=== PATIENT | male | born 1985 | race Two or more races ===

== ENCOUNTER 2016-05-26 18:19 | Emergency (ER) | payer SELFPAY ==
[~2016-05-26] VITALS: Ht 160 cm; Wt 59.0 kg
[2016-05-26 20:18] VITALS: BP 144/83
== END 2016-05-26 21:47 | disposition home or self-care (01) ==
LOC: ER 18:28
DX: S40.012A Contusion of left shoulder, initial encounter (principal); F17.210 Nicotine dependence, cigarettes, uncomplicated; F12.10 Cannabis abuse, uncomplicated; Z88.0 Allergy status to penicillin; W19.XXXA Unspecified fall, initial encounter; Y93.23 Activity, snow (alpine) (downhill) skiing, snowboarding, sledding, tobogganing and snow tubing; Y99.8 Other external cause status; Y92.89 Other specified places as the place of occurrence of the external cause
CPT/HCPCS: 71010; 73030

== ENCOUNTER 2024-12-06 01:20 | Inpatient (IN) | payer MEDICAID, OTHER ==
[~2024-12-06] VITALS: Ht 162.6 cm; Wt 65.4 kg
[2024-12-06] VITALS (7 sets, daily range): BP systolic 99–128; BP diastolic 65–91; PULSE 66–115; RESP 13–19; TEMP 98–98.4; O2SAT 90–96
--- NOTE | 2024-12-06 01:33 | ED.PDOC ---
Altered Mental Status HPI Comments 39 year old male presents to the ED via EMS with a chief complaint of ALOC. Per EMS, patient was at home, family heard a loud "thump" around 23:00, went to check on the patient around midnight, they noticed patient was on the ground, unresponsive, began CPR. S.O gave patient 8 mg Narcan IN. Upon EMS arrival, eli ent's O2 sat was initially low 60s, placed on O2, BS read "high", IV fluids were given in route. Upon ED arrival, patient is awake, altered, not answering questions appropriately, denies drug or alcohol use, BS was 533, patient able to breath on his own. Patient is a poor historian. Time Seen by MD: 01:25 Primary Care Provider: NONE Reviewed Notes: Medications, Allergies Allergies: Coded Allergies: Penicillins (Verified Allergy, Unknown, 05/26/16) Information Source: Emergency Med Personnel Mode of Arrival: EMS Severity: Moderate Timing: Hours Duration: Since onset Prehospital treatment: IVF, Other (Narcan 8 mg IN) Quality: Decreased Alertness, Change in Behavior History of: None Past Medical History PAST MEDICAL HISTORY: Denies Surgical History: Denies all surgeries Social History Smoker: Cigarettes Alcohol: Occasionally Drugs: Marijuana Lives In: Home Unable to Obtain due to: Altered Mental Status Physical Exam General Appearance: Normal HEENT: Normal ENT Inspection, Pharynx Normal, TMs Normal Neck: Full Range of Motion, Non-Tender, Normal, Normal Inspection Respiratory: Chest Non-Tender, Lungs Clear, No Accessory Muscle Use, No Respiratory Distress, Normal Breath Sounds Cardiovascular: No Edema, No JVD, No Murmur, No Gallop, Normal Peripheral Pulses, Regular Rate/Rhythm Breast Exam: Deferred Gastrointestinal: No Organomegaly, Non Tender, No Pulsatile Mass, Normal Bowel Sounds, Soft Genitalia: Deferred Pelvic: Deferred Rectal: Deferred Extremities: No calf tenderness, Normal capillary refill, Normal inspection, Normal range of motion, Non-tender, No pedal edema Musculoskeletal : Apperance: Normal Neurologic: Alert, Disoriented Cerebellar Function: Normal Reflexes: Normal Skin: Dry, Normal Color, Warm Lymphatic: No Adenopathy Was a procedure done? Was a procedure done?: No Differential Diagnosis (ALOC) Differential Diagnosis: Dehydration, DKA, Drug Overdose, ETOH Intoxication X-Ray, Labs, Meds, VS Vital Signs Date Time Temp Pulse Resp B/P (MAP) Pulse Ox O2 Delivery O2 Flow Rate FiO2 12/06/24 01:45 98.1 115 14 135/83 (100) 96 98.1 12/06/24 01:45 115 14 96 Nasal Cannula* 6 44 12/06/24 01:44 118 12/06/24 01:30 120 12/06/24 01:20 98.7 123 30 136/86 92 98.7 Lab Test 12/06/24 03:22 12/06/24 01:59 12/06/24 01:42 12/06/24 01:40 Range/Units POC Glucose 144 H 70-106 mg/dl Urine Color Light-yellow Yellow Urine Clarity Clear Clear Urine pH 6.5 5.0-9.0 Urine Specific [place] 1.009 1.001-1.035 Urine Protein 1+ H Negative Urine Ketones Negative Negative Urine Blood 1+ H Negative /uL Urine Nitrite Negative Negative Urine Bilirubin Negative Negative Urine Urobilinogen Normal Negative mg/dL Urine Leukocyte Esterase Negative Negative /uL Urine RBC 5 0 - 3 /hpf Urine Microscopic WBC 3 0-3 /HPF Urine Squamous Epithelial Cells None seen <5 /hpf Urine Bacteria None seen None Seen /hpf Urine Sperm Present None Seen /hpf Urine Glucose 4+ H Normal mg/dL Urine Opiates Screen Neg NEGATIVE Urine Fentanyl Screen Pos NEGATIVE Urine Barbiturates Screen Neg NEGATIVE Urine Phencyclidine Screen Neg NEGATIVE Urine Amphetamines Screen Pos NEGATIVE Urine Benzodiazepines Screen Neg NEGATIVE Urine Cocaine Screen Neg NEGATIVE Urine Cannabinoids Screen Neg NEGATIVE Blood Gas Specimen Type Venous Blood Gas Sample Site Vbg - n/a Blood Gas Patient Temperature 37.0 Arterial Blood Date Drawn [id number] Pete Test N/a Venous Blood pH 7.108 *L 7.320-7.430 Venous Blood pCO2 at Patient Temp 59.4 *H 38.0-54.0 mmHg Venous Blood pO2 at Patient Temp < 36.5 23.0-48.0 mmHg Venous Blood HCO3 18.4 L 22.0-29.0 mmol/L Venous Blood Base Excess -11.8 L -2.0-3.0 mmol/L Blood Gas Modality Room air FiO2 % 21.0 Blood Gas Critical Value Read Back Yes Blood Gas Notified Whom nga rCuz md Blood Gas Notified Time [id number] Blood Gas Notified By Magaña, b, handbag frames inspector White Blood Count 11.3 H 4.4-10.8 10^3/uL Red Blood Count 5.18 4.5-5.90 10^6/uL Hemoglobin 15.8 13.5-17.5 g/dL Hematocrit 48.4 41.0-53.0 % Mean Corpuscular Volume 93.4 80.0-100.0 fL Mean Corpuscular Hemoglobin 30.5 28.0-32.0 pg Mean Corpuscular Hemoglobin Concent 32.6 32.0-36.0 g/dL Red Cell Distribution Width 14.1 11.8-14.3 % Platelet Count 235 140-450 10^3/uL Mean Platelet Volume 8.3 6.9-10.8 fL Neutrophils (%) (Auto) 83.5 H 37.0-80.0 % Lymphocytes (%) (Auto) 14.9 10.0-50.0 % Monocytes (%) (Auto) 1.0 0.0-12.0 % Eosinophils (%) (Auto) 0.4 0.0-7.0 % Basophils (%) (Auto) 0.2 0.0-2.0 % Neutrophils # (Auto) 9.5 H 1.6-8.6 10 ^3/uL Lymphocytes # (Auto) 1.7 0.4-5.4 10 ^3/uL Monocytes # (Auto) 0.1 0-1.3 10 ^3/uL Eosinophils # (Auto) 0 0-0.8 10 ^3/uL Basophils # (Auto) 0 0-0.2 10 ^3/uL Nucleated Red Blood Cells 0.2 % Sodium Level 137 136-145 mmol/L Potassium Level 5.5 H 3.5-5.1 mmol/L Chloride Level 101 98-107 mmol/L Carbon Dioxide Level 20 20-31 mmol/L Anion Gap 16 H 5-15 Blood Urea Nitrogen 14 9-23 mg/dL Creatinine 2.20 H 0.700-1.30 mg/dL Glomerular Filtration Rate Calc 38 >90 mL/min BUN/Creatinine Ratio 6.4 L 10.0-20.0 Serum Glucose 553 *H 74-106 mg/dL Serum Osmolality 319 H 278-298 mOsm/kg Calcium Level 9.5 8.7-10.4 mg/dL Phosphorus Level 9.6 H 2.4-5.1 mg/dL Magnesium Level 2.9 H 1.6-2.6 mg/dL Total Bilirubin 0.7 0.2-1.0 mg/dL Aspartate Amino Transferase (AST) 631 H 13-40 U/L Alanine Aminotransferase (ALT) 431 H 7-40 U/L Alkaline Phosphatase 126 H 46-116 U/L Total Protein 7.0 5.7-8.2 g/dL Albumin 5.0 H 3.2-4.8 g/dL Beta-Hydroxybutyric Acid 0.204 < 0.4 mmol/L Salicylates Level < 3.0 -30 mg/dL Acetaminophen Level < 2.0 L 10.0-20.0 UG/ML Plasma/Serum Blood Alcohol 5.3 <10 mg/dL Current Medications Medications (Trade) Dose Ordered Sig/Trena Route Start Time Stop Time Status Last Admin Sodium Chloride 2,000 ml @ 1,000 mls/hr Q2H ONCE IV 12/06/24 01:30 12/06/24 03:29 DC 12/06/24 02:18 Insulin Human Regular (InsuLIN R) 2 units ONCE ONCE SC 12/06/24 01:30 12/06/24 01:32 DC 12/06/24 02:21 [place] [id number] Ph: [phone] DIAGNOSTIC IMAGING Diagnostic Imaging Report : [id number] Signed PATIENT: MICHAEL ROSALES ACCT: [id number] UNIT: [id number] : 1985 LOC: ER ROOM / BED: / AGE / SEX: 39 / M ADM STATUS: REG ER SERVICE 0128 ORDERING PHYSICIAN: RONNA CRUZ MD PROCEDURE(s): HWOCT - HEAD WITHOUT CONTRAST REASON: ALOC ORDER NUMBER(s): [id number], ACCESSION NUMBER(s): [id number] EXAM: CT HEAD WITHOUT CONTRAST INDICATION: ALOC TECHNIQUE: CT of the head without intravenous contrast. Radiation Dose : 1. Head: CT Dose: CTDI volume is 54.89 mGy. Dose-length product is 1081.71 mGy*cm The dose indicators for CT are the volume Computed Tomography (CT) Dose Index (CTDIvol) and the Dose Length Product (DLP), and are measured in units of mGy and mGy-cm, respectively. These indicators are not patient dose, but values generated from the CT scanner acquisition factors. The report includes radiation exposure data for exposures received during this examination. COMPARISON: None FINDINGS: There is no evidence of acute intracranial hemorrhage, extra-axial collection, mass effect, midline shift, herniation or hydrocephalus. The ventricles, sulci and cisterns are age appropriate. The levi-white differentiation is intact. The visualized paranasal sinuses and mastoid air cells are clear. The surrounding soft tissues and osseous structures are unremarkable. IMPRESSION: 1. No acute intracranial abnormality. Radiation optimization: All CT scans at this facility use at least one of these dose optimization techniques: automated exposure control mA and/or kV adjustment per patient size (includes targeted exams where dose is matched to clinical indication) or iterative reconstruction. ATED BY: MAGNO CANALES MD DICTATED DATE/TIME: 12/06/24218 SIGNED BY: MAGNO CANALES MD SIGNED DATE/TIME: 12/06/24218 CC: [place] [id number] Ph: [phone] DIAGNOSTIC IMAGING Diagnostic Imaging Report : [id number] Signed PATIENT: MICHAEL ROSALES ACCT: [id number] UNIT: [id number] : 1985 LOC: ER ROOM / BED: / AGE / SEX: 39 / M ADM STATUS: REG ER SERVICE 7 ORDERING PHYSICIAN: RONNA CRUZ MD PROCEDURE(s): CXRP - CHEST PORTABLE REASON: SOB ORDER NUMBER(s): [id number], ACCESSION NUMBER(s): [id number] CHEST RADIOGRAPH Indication: SOB Technique: Single frontal view of the chest was obtained COMPARISON: None FINDINGS: Lines and Tubes: None Lungs: Clear Pleura: No effusion. No pneumothorax. Cardiomediastinal contours: Unremarkable Bones: Unremarkable IMPRESSION: 1. No acute disease. ATED BY: MAGNO CANALES MD DICTATED DATE/TIME: 12/06/24215 SIGNED BY: MAGNO CANALES MD SIGNED DATE/TIME: 12/06/246 CC: Time of 1ST Reevaluation: 01:55 Reevaluation 1ST: Unchanged Patient Education/Counseling: Diagnosis, Treatment, Prognosis Family Education/Counseling: No Family Present Additional Information The following tests were ordered, and results were reviewed by me:CBC, CMP, DRUG SCREEN, ACETAMINOPHEN, SALICYLATE, UA, XY CHEST, BLOOD ALCOHOL, MAGNESIUM, CT HEAD WO CONTRAST, VBG, EKG Additional Information was gathered from interviewing the following independent historians: EMS I reviewed and agreed with the following test results read by other providers: XY CHEST I discussed treatment and results with medical personnel and: patient Comprehensive systems review obtained and negative except for what is stated in the HPI. SEPSIS Sepsis Screen Physician Orders Chest Portable (12/06/24 01:28) Head Without Contrast (12/06/24 01:28) Venous Blood Gas (12/06/24 01:28) Insulin Drip Protocol (12/06/24 ) Sodium Chloride 0.9% (12/06/24 06:00) Insulin Drip 100 Unit/100ml (Myxredlin 1 (12/06/24 02:00) Dextrose 50% Syringe (12/06/24 02:00) Glucose Blood (Accu-Chek Comfort Curve T (12/06/24 03:00) Neurological Assessment (12/06/24 01:58) Vs/Hemodynamics .PER UNIT PROTOCOL (12/06/24 01:58) Vital Signs Date Time Temp Pulse Resp B/P (MAP) Pulse Ox O2 Delivery O2 Flow Rate FiO2 12/06/24 01:45 98.1 115 14 135/83 (100) 96 98.1 12/06/24 01:45 115 14 96 Nasal Cannula* 6 44 12/06/24 01:44 118 12/06/24 01:30 120 12/06/24 01:20 98.7 123 30 136/86 92 98.7 Laboratory Tests Test 12/06/24 01:40 White Blood Count 11.3 10^3/uL (4.4-10.8) H Medications Medications Dose Ordered Sig/Trena Route Start Time Stop Time Status Last Admin Dose Admin Insulin Human Regular 2 units ONCE ONCE SC 12/06/24 01:30 12/06/24 01:32 DC 12/06/24 02:21 Sodium Chloride 2,000 ml @ 1,000 mls/hr Q2H ONCE IV 12/06/24 01:30 12/06/24 03:29 DC 12/06/24 02:18 Departure 1 Departure Time of Disposition: 03:42 Impression: Primary Impression: Metabolic encephalopathy Additional Impressions: New onset type 1 diabetes mellitus, uncontrolled Acute renal injury Diabetic ketoacidosis Disposition: ADMITTED INPATIENT Admit to: ICU Condition: Critical Discharged With: Self Comments Altered Mental Status with DKA and Opiate Overdose Chief Complaint: Altered mental status History of Present Illness: Patient is a 39-year-old male with no reported medical history who was brought in by ambulance after being found altered at home. Family members reported hearing a thump around 11 PM and found the patient unresponsive approximately one hour later. EMS administered Narcan at the scene, which resulted in the patient regaining consciousness. Upon arrival to the ED, the patient denied any drug use and claimed to have no medical problems or regular medications. He did admit to not having seen a doctor in many years and being non-compliant with healthcare. Initial workup revealed severe hyperglycemia with blood glucose of 553 mg/dL, consistent with diabetic ketoacidosis (DKA) with an elevated anion gap of 16 and acidosis (pH 7.1, PCO2 59). The patient also presented with acute kidney injury (creatinine 2.2 mg/dL), hyperkalemia (5.5 mEq/L), hypermagnesemia (2.9 mg/dL), hyperphosphatemia (9.6 mg/dL), and elevated liver enzymes (AST 631 U/L, ALT 431 U/L). Toxicology screen was positive for opiates, suggesting that the altered mental status was likely due to opiate overdose in addition to metabolic derangements from DKA. Review of Systems: Unable to obtain comprehensive review of systems due to patient's altered mental status. Neurological: Initially unresponsive, improved after Narcan administration. Endocrine: Findings consistent with undiagnosed diabetes mellitus with DKA. Renal: Evidence of acute kidney injury. Hepatic: Elevated liver enzymes suggesting hepatic dysfunction. Medications: Patient denies taking any medications regularly. Allergies: No known drug allergies reported. Past Medical History: Patient denies any past medical history. Likely undiagnosed diabetes mellitus based on current presentation. Past Surgical History: None reported. Social History: Patient admits to not seeing a doctor in many years. Evidence of opiate use based on positive toxicology screen. Other social history details not available at this time. Family History: Not obtained due to patient's condition. Vital Signs: No specific vital signs documented in the ribbon cleaner. Physical Exam: Limited physical exam details available in the ribbon cleaner. Neurological: Initially altered, improved after Narcan administration. Lab Results: Blood glucose: 553 mg/dL (severely elevated), later dropped to 150 mg/dL after insulin administration Arterial blood gas: pH 7.1 (acidotic), PCO2 59 mmHg (elevated) Anion gap: 16 (elevated) BUN: 14 mg/dL (normal) Creatinine: 2.2 mg/dL (elevated, consistent with acute kidney injury) Potassium: 5.5 mEq/L (elevated) Magnesium: 2.9 mg/dL (elevated) Phosphorus: 9.6 mg/dL (elevated) AST: 631 U/L (significantly elevated) ALT: 431 U/L (significantly elevated) Alkaline phosphatase: 126 U/L (elevated) Total bilirubin: 0.7 mg/dL (normal) Urinalysis: Positive for protein, blood, and glucose Toxicology screen: Positive for opiates Imaging and Other Relevant Results: CT head: No acute pathology Chest X-ray: No acute pathology Medical Decision Making: Summary Statement: 39-year-old male with no known medical history presenting with altered mental status found to have severe DKA, acute kidney injury, elevated liver enzymes, and positive opiate screen, suggesting both new-onset diabetes and opiate overdose as contributing factors to his presentation. Problem List: 1. Diabetic ketoacidosis 2. Opiate overdose 3. Acute kidney injury 4. Elevated liver enzymes 5. Electrolyte abnormalities (hyperkalemia, hypermagnesemia, hyperphosphatemia) Differential Diagnosis: For altered mental status: DKA, opiate overdose, other substance intoxication, sepsis, cerebrovascular event, hypoxic brain injury. For elevated liver enzymes: drug-induced liver injury, viral hepatitis, ischemic hepatitis, alcoholic liver disease. ED Course: Patient received IV fluids and insulin, resulting in blood glucose reduction from 553 mg/dL to 150 mg/dL. Narcan was administered by EMS with improvement in mental status. Diagnostic workup included laboratory studies, CT head, and chest X-ray. Decision was made to admit for management of DKA with insulin infusion and D5 drip, as well as monitoring for opiate overdose. Assessment and Plan: 1. Diabetic Ketoacidosis (DKA): - Likely new-onset diabetes mellitus with severe hyperglycemia (glucose 553 mg/dL), elevated anion gap (16), and acidosis (pH 7.1) - Continue IV fluid resuscitation - Initiate low-dose insulin infusion with D5 drip to prevent precipitous glucose drop - Monitor electrolytes closely, particularly potassium - Serial blood gases to track resolution of acidosis - Endocrinology consultation for diabetes management and education 2. Opiate Overdose: - Positive toxicology screen for opiates, responsive to Narcan - Monitor for recurrent respiratory depression or altered mental status - Substance use consultation for evaluation and treatment recommendations - Social work consultation for outpatient resources 3. Acute Kidney Injury: - Creatinine elevated at 2.2 mg/dL with normal BUN - Likely multifactorial from DKA and possible hypoperfusion - Continue IV hydration - Monitor urine output and serial renal function tests - Avoid nephrotoxic medications 4. Elevated Liver Enzymes: - AST 631 U/L, ALT 431 U/L - Consider drug-induced liver injury vs. ischemic hepatitis - Monitor liver function tests - Hepatitis panel to rule out viral etiology 5. Electrolyte Abnormalities: - Hyperkalemia (5.5 mEq/L), hypermagnesemia (2.9 mg/dL), hyperphosphatemia (9.6 mg/dL) - Monitor and correct as part of DKA management - Serial electrolyte measurements Disposition: Admit to medical floor for management of DKA with insulin infusion and monitoring for complications of opiate overdose. Additional Notes: Patient admitted for management of DKA and monitoring following opiate overdose. Billing Information: ICD-10: E11.10 - Type 2 diabetes mellitus with ketoacidosis without coma ICD-10: T40.2X1A - Poisoning by other opioids, accidental (unintentional), initial encounter ICD-10: N17.9 - Acute kidney injury, unspecified ICD-10: K72.0 - Acute and subacute hepatic failure Critical Care Note Critical Care Time?: Yes (35 min-critical care time only) Critical care comment: Total critical care time: Approximately 36 minutes Due to a high probability of clinically significant, life threatening deterioration, the patient required my highest level of preparedness to intervene emergently and I personally spent this critical care time directly and personally managing the patient. This critical care time included obtaining a history; examining the patient; pulse oximetry; ordering and review of studies; arranging urgent treatment with development of a management plan; evaluation of patient's response to treatment; frequent reassessment; and, discussions with other providers. This critical care time was performed to assess and manage the high probability of imminent, life-threatening deterioration that could result in multi-organ failure. It was exclusive of separately billable procedures and treating other patients. Stability Stability form required: No Heart Score Heart Score: Heart Score Response (Comments) Value History N/A 0 EKG N/A 0 Age N/A 0 Risk Factors N/A 0 Troponin N/A 0 Total 0 I personally scribed for RONNA CRUZ MD ([email or web address]) on 12/06/24 at 01:33. Electronically submitted by Amber Cao ([email or web address]). I personally scribed for RONNA CRUZ MD ([email or web address]) on 12/06/24 at 01:35. Electronically submitted by Amber Cao ([email or web address]). I personally scribed for RONNA CRUZ MD ([email or web address]) on 12/06/24 at 02:52. Electronically submitted by Amber Cao ([email or web address]). RONNA CRUZ MD Dec 06, 2024 01:33
[2024-12-06] MEDS ORDERED: DEXTROSE (50%) 50ML SYRG IV PRN ×3 (02:00→13:45)
[2024-12-06] MEDS: SODIUM CHLORIDE 0.9% 2,000 ML IV ONE (02:18)
--- NOTE | 2024-12-06 02:19 | DVH ---
CHEST RADIOGRAPH Indication: SOB Technique: Single frontal view of the chest was obtained COMPARISON: None FINDINGS: Lines and Tubes: None Lungs: Clear Pleura: No effusion. No pneumothorax. Cardiomediastinal contours: Unremarkable Bones: Unremarkable IMPRESSION: 1. No acute disease.
[2024-12-06 02:21] LABS: Hematocrit 48.4 % (41.0-53.0); Hemoglobin 15.8 g/dL (13.5-17.5); Mean Corpuscular Hemoglobin 30.5 pg (28.0-32.0); Mean Corpuscular Volume 93.4 fL (80.0-100.0); Nucleated Red Blood Cells % 0.2 %
[2024-12-06] MEDS: InsuLIN REG 1unit/0.01ml Soln (100units/ml) SC ONE (02:21)
--- NOTE | 2024-12-06 02:21 | DVH ---
EXAM: CT HEAD WITHOUT CONTRAST INDICATION: ALOC TECHNIQUE: CT of the head without intravenous contrast. Radiation Dose : 1. Head: CT Dose: CTDI volume is 54.89 mGy. Dose-length product is 1081.71 mGy*cm The dose indicators for CT are the volume Computed Tomography (CT) Dose Index (CTDIvol) and the Dose Length Product (DLP), and are measured in units of mGy and mGy-cm, respectively. These indicators are not patient dose, but values generated from the CT scanner acquisition factors. The report includes radiation exposure data for exposures received during this examination. COMPARISON: None FINDINGS: There is no evidence of acute intracranial hemorrhage, extra-axial collection, mass effect, midline s hift, herniation or hydrocephalus. The ventricles, sulci and cisterns are age appropriate. The levi-white differentiation is intact. The visualized paranasal sinuses and mastoid air cells are clear. The surrounding soft tissues and osseous structures are unremarkable. IMPRESSION: 1. No acute intracranial abnormality. Radiation optimization: All CT scans at this facility use at least one of these dose optimization aliyah hniques: automated exposure control mA and/or kV adjustment per patient size (includes targeted exam s where dose is matched to clinical indication) or iterative reconstruction.
[2024-12-06 02:32] LABS: Urine Protein, UAD 1+ (Negative)
[2024-12-06 02:35] LABS: Anion Gap 16 (5-15); BUN/Creatinine Ratio 6.4 (10.0-20.0); Bilirubin, Total 0.7 mg/dL (0.2-1.0); Blood Urea Nitrogen 14 mg/dL (9-23); Calcium 9.5 mg/dL (8.7-10.4); Chloride 101 mmol/L (98-107); Sodium 137 mmol/L (136-145); Total Protein 7.0 g/dL (5.7-8.2)
--- NOTE | 2024-12-06 02:35 | ECG ---
[facility] Test Date: 2024-12-06 Test Time: 01:30:52 Pat Name: MICHAEL ROSALES Department: ED Room: [address] [place] [address] Gender: M Security Operations Manager: ZAIN : 1985 Requested By: RONNA CRUZ Order Number: [id number] Reading MD: Jaylen Calvin Measurements Intervals Jarrell Rate: 120 P: 51 ND: 146 QRS: 61 QRSD: 100 T: 14 QT: 318 QTc: 450 Interpretive Statements Sinus tachycardia Minimal ST depression, inferior leads Electronically Signed On 12-06-2024 11:21:12 PDT by Jaylen Calvin Please click the below link to view image of tracing.
[2024-12-06 02:37] LABS: Acetaminophen < 2.0 UG/ML (10.0-20.0); Salicylate < 3.0 mg/dL (-30)
[2024-12-06] MEDS: ACCU-CHEK COMFORT CURVE STRIP VI SCH ×2 (03:00→08:00)
[2024-12-06 03:14] LABS: Alanine Aminotransferase 431 U/L (7-40); Albumin 5.0 g/dL (3.2-4.8); Alkaline Phosphatase 126 U/L (46-116); Carbon Dioxide 20 mmol/L (20-31); Magnesium 2.9 mg/dL (1.6-2.6); Potassium 5.5 mmol/L (3.5-5.1)
[2024-12-06 03:15] LABS: Amphetamine Screen, Urine Pos (NEGATIVE); Barbiturate Scree,Urine Neg (NEGATIVE); Benzodiazephine Screen, Urine Neg (NEGATIVE); Cannabinoid Screen, Urine Neg (NEGATIVE); Cocaine Screen, Urine Neg (NEGATIVE); Opiate Scree,Urine Neg (NEGATIVE); Phencyclidine Screen, Urine Neg (NEGATIVE)
[2024-12-06 03:15] LABS: Glucose 553 mg/dL (74-106)
[2024-12-06] MEDS: SODIUM CHLORIDE 0.9% 1,000 ML IV ONE ×3 (03:47→12:00)
[2024-12-06] MEDS: INSULIN DRIP 100 UNIT/100ML 100 ML IV SCH (03:48)
[2024-12-06] MEDS ORDERED: ONDANSETRON HCL 4 MG/2 ML VIAL IV PRN (04:30)
[2024-12-06] MEDS ORDERED: MORPHINE SULFATE INJ 2 MG/ml SYRG IV PRN (04:30)
[2024-12-06] MEDS ORDERED: NITROGLYCERIN 0.4 MG SL TAB SL PRN (04:30)
--- NOTE | 2024-12-06 04:34 | DVHHP2 ---
History of Present Illness Reason for Visit: Altered mental status History of Present Illness 39-year-old male presents for evaluation of altered mental status. Per ED records and personnel family heard a loud thump and found the patient unresponsive. CPR was started by family on arrival of EMS Narcan was administered with positive response. Patient is currently lethargic and not answering questions. Past Medical History Denies Past Surgical History Denies Family History Diabetes mellitus Smoke: <1 pack per day ALCOHOL: occassional Drugs: Marijuana, Other (Amphetamine) Review of Systems Review of Systems Review of systems are limited due to the patient's altered mental status. Allergies: Coded Allergies: Penicillins (Verified Allergy, Unknown, 05/26/16) Medications Current Medications Medications Dose Ordered Sig/Trena Route Start Time Stop Time Status Last Admin Dose Admin Sodium Chloride 1,000 ml @ 250 mls/hr Q4H IV 12/06/24 06:00 12/06/24 07:59 Insulin Human (Reg)/Sodium Chloride 100 ml @ 0.5 mls/hr Q24H IV 12/06/24 02:00 Dextrose 50 ml UD PRN IV 12/06/24 02:00 Diagnostic Test (Pha) 1 strip Q90MIN 12/06/24 03:00 12/06/24 03:00 1 STRIP Exam Vital Signs Vital Signs Date Time Temp Pulse Resp B/P (MAP) Pulse Ox O2 Delivery O2 Flow Rate FiO2 12/06/24 03:30 107 11 127/83 (98) 94 12/06/24 01:45 98.1 98.1 12/06/24 01:45 Nasal Cannula* 6 44 Exam Gen: 39-year-old male in mild distress Skin: Warm, dry, normal color and texture, no rash. HEENT: Normocephalic atraumatic, mucous membranes moist and pink. Neck: Cervical and supraclavicular nodes normal without enlargement, trachea is midline, thyroid gland is normal without masses. Pulmonary: Clear to auscultation and percussion bilaterally. Cardiac: Regular rate and rhythm. No murmur Abdomen: Soft, nontender, nondistended, bowel sounds present all 4 quadrants, no guarding, no rigidity, no organomegaly. Extremities: No cyanosis, clubbing, no edema Neuro: Lethargic no neurologic focal deficits Labs/Xrays ORDERING PHYSICIAN: RONNA CRUZ MD PROCEDURE(s): CXRP - CHEST PORTABLE REASON: SOB ORDER NUMBER(s): [id number], ACCESSION NUMBER(s): [id number] CHEST RADIOGRAPH Indication: SOB Technique: Single frontal view of the chest was obtained COMPARISON: None FINDINGS: Lines and Tubes: None Lungs: Clear Pleura: No effusion. No pneumothorax. Cardiomediastinal contours: Unremarkable Bones: Unremarkable IMPRESSION: 1. No acute disease. RING PHYSICIAN: RONNA CRUZ MD PROCEDURE(s): HWOCT - HEAD WITHOUT CONTRAST REASON: ALOC ORDER NUMBER(s): [id number], ACCESSION NUMBER(s): [id number] EXAM: CT HEAD WITHOUT CONTRAST INDICATION: ALOC TECHNIQUE: CT of the head without intravenous contrast. Radiation Dose : 1. Head: CT Dose: CTDI volume is 54.89 mGy. Dose-length product is 1081.71 mGy*cm The dose indicators for CT are the volume Computed Tomography (CT) Dose Index (CTDIvol) and the Dose Length Product (DLP), and are measured in units of mGy and mGy-cm, respectively. These indicators are not patient dose, but values generated from the CT scanner acquisition factors. The report includes radiation exposure data for exposures received during this examination. COMPARISON: None FINDINGS: There is no evidence of acute intracranial hemorrhage, extra-axial collection, mass effect, midline shift, herniation or hydrocephalus. The ventricles, sulci and cisterns are age appropriate. The levi-white differentiation is intact. The visualized paranasal sinuses and mastoid air cells are clear. The surrounding soft tissues and osseous structures are unremarkable. IMPRESSION: 1. No acute intracranial abnormality. Radiation optimization: All CT scans at this facility use at least one of these dose optimization techniques: automated exposure control mA and/or kV adjustment per patient size (includes targeted exams where dose is matched to clinical indication) or iterative reconstruction. Labs Test 12/06/24 03:25 12/06/24 01:59 12/06/24 01:42 12/06/24 01:40 Range/Units POC Glucose 156 H 70-106 mg/dl Urine Color Light-yellow Yellow Urine Clarity Clear Clear Urine pH 6.5 5.0-9.0 Urine Specific [place] 1.009 1.001-1.035 Urine Protein 1+ H Negative Urine Ketones Negative Negative Urine Blood 1+ H Negative /uL Urine Nitrite Negative Negative Urine Bilirubin Negative Negative Urine Urobilinogen Normal Negative mg/dL Urine Leukocyte Esterase Negative Negative /uL Urine RBC 5 0 - 3 /hpf Urine Microscopic WBC 3 0-3 /HPF Urine Squamous Epithelial Cells None seen <5 /hpf Urine Bacteria None seen None Seen /hpf Urine Sperm Present None Seen /hpf Urine Glucose 4+ H Normal mg/dL Urine Opiates Screen Neg NEGATIVE Urine Fentanyl Screen Pos NEGATIVE Urine Barbiturates Screen Neg NEGATIVE Urine Phencyclidine Screen Neg NEGATIVE Urine Amphetamines Screen Pos NEGATIVE Urine Benzodiazepines Screen Neg NEGATIVE Urine Cocaine Screen Neg NEGATIVE Urine Cannabinoids Screen Neg NEGATIVE Blood Gas Specimen Type Venous Blood Gas Sample Site Vbg - n/a Blood Gas Patient Temperature 37.0 Arterial Blood Date Drawn [id number] Pete Test N/a Venous Blood pH 7.108 *L 7.320-7.430 Venous Blood pCO2 at Patient Temp 59.4 *H 38.0-54.0 mmHg Venous Blood pO2 at Patient Temp < 36.5 23.0-48.0 mmHg Venous Blood HCO3 18.4 L 22.0-29.0 mmol/L Venous Blood Base Excess -11.8 L -2.0-3.0 mmol/L Blood Gas Modality Room air FiO2 % 21.0 Blood Gas Critical Value Read Back Yes Blood Gas Notified Whom nga Cruz md Blood Gas Notified Time [id number] Blood Gas Notified By ulises Magaña rrt White Blood Count 11.3 H 4.4-10.8 10^3/uL Red Blood Count 5.18 4.5-5.90 10^6/uL Hemoglobin 15.8 13.5-17.5 g/dL Hematocrit 48.4 41.0-53.0 % Mean Corpuscular Volume 93.4 80.0-100.0 fL Mean Corpuscular Hemoglobin 30.5 28.0-32.0 pg Mean Corpuscular Hemoglobin Concent 32.6 32.0-36.0 g/dL Red Cell Distribution Width 14.1 11.8-14.3 % Platelet Count 235 140-450 10^3/uL Mean Platelet Volume 8.3 6.9-10.8 fL Neutrophils (%) (Auto) 83.5 H 37.0-80.0 % Lymphocytes (%) (Auto) 14.9 10.0-50.0 % Monocytes (%) (Auto) 1.0 0.0-12.0 % Eosinophils (%) (Auto) 0.4 0.0-7.0 % Basophils (%) (Auto) 0.2 0.0-2.0 % Neutrophils # (Auto) 9.5 H 1.6-8.6 10 ^3/uL Lymphocytes # (Auto) 1.7 0.4-5.4 10 ^3/uL Monocytes # (Auto) 0.1 0-1.3 10 ^3/uL Eosinophils # (Auto) 0 0-0.8 10 ^3/uL Basophils # (Auto) 0 0-0.2 10 ^3/uL Nucleated Red Blood Cells 0.2 % Sodium Level 137 136-145 mmol/L Potassium Level 5.5 H 3.5-5.1 mmol/L Chloride Level 101 98-107 mmol/L Carbon Dioxide Level 20 20-31 mmol/L Anion Gap 16 H 5-15 Blood Urea Nitrogen 14 9-23 mg/dL Creatinine 2.20 H 0.700-1.30 mg/dL Glomerular Filtration Rate Calc 38 >90 mL/min BUN/Creatinine Ratio 6.4 L 10.0-20.0 Serum Glucose 553 *H 74-106 mg/dL Serum Osmolality 319 H 278-298 mOsm/kg Calcium Level 9.5 8.7-10.4 mg/dL Phosphorus Level 9.6 H 2.4-5.1 mg/dL Magnesium Level 2.9 H 1.6-2.6 mg/dL Total Bilirubin 0.7 0.2-1.0 mg/dL Aspartate Amino Transferase (AST) 631 H 13-40 U/L Alanine Aminotransferase (ALT) 431 H 7-40 U/L Alkaline Phosphatase 126 H 46-116 U/L Total Protein 7.0 5.7-8.2 g/dL Albumin 5.0 H 3.2-4.8 g/dL Beta-Hydroxybutyric Acid 0.204 < 0.4 mmol/L Salicylates Level < 3.0 -30 mg/dL Acetaminophen Level < 2.0 L 10.0-20.0 UG/ML Plasma/Serum Blood Alcohol 5.3 <10 mg/dL SEPSIS Sepsis Screen Date sepsis recognized/suspect: Dec 06, 2024 Time Sepsis recognized/suspect: 144 Recent Procedure: No On Antibiotic Therapy: No Respiratory Rate >20: No Heart Rate >90: Yes Temp<36 C (96.8 F) or >38.3 C: No SBP <90 or MAP <65 mmHG: No New Acute Mental Status Change: No Is the patient on CPAP, BIPAP,: No Physician Orders Chest Portable (12/06/24 01:28) Head Without Contrast (12/06/24 01:28) Venous Blood Gas (12/06/24 01:28) Insulin Drip Protocol (12/06/24 ) Sodium Chloride 0.9% (12/06/24 06:00) Insulin Drip 100 Unit/100ml (Myxredlin 1 (12/06/24 02:00) Dextrose 50% Syringe (12/06/24 02:00) Glucose Blood (Accu-Chek Comfort Curve T (12/06/24 03:00) Neurological Assessment (12/06/24 01:58) Vs/Hemodynamics .PER UNIT PROTOCOL (12/06/24 01:58) Basic Metabolic Panel (12/06/24 07:00) Sodium Chloride 0.9% (12/06/24 04:30) Hemoglobin A1c (12/06/24 04:22) Acute Hepatitis Panel (12/06/24 04:22) Consistent Carb(Ccho)Diabetes (12/06/24 Breakfast) Glucose Blood (Accu-Chek Comfort Curve T (12/06/24 08:00) Insulin R (Human) (Insulin R) (12/06/24 08:00) Dextrose 50% Syringe (12/06/24 04:30) Admit (12/06/24 04:22) Ondansetron Hcl (Zofran) (12/06/24 04:30) Complete Blood Count (12/07/24 04:00) Comprehensive Metabolic Panel (12/07/24 04:00) Condition: Fair (12/06/24 04:22) Bedrest With Bathroom Privileg (12/06/24 04:22) Nitroglycerin Sublingual (Ntrostat Subli (12/06/24 04:30) Morphine Sulfate Injection (12/06/24 04:30) Stat Ekg For Chest Pain (12/06/24 04:22) Notify Md Of Changes From Base (12/06/24 04:22) Vrt Mechanic For 24 Hours (12/06/24 04:22) Emergency Dysrhythmia Protocol (12/06/24 04:22) Rhythm Strips Once Every Shift (12/06/24 04:22) Oxygen By Nasal Cannula (12/06/24 04:22) Vital Signs Date Time Temp Pulse Resp B/P (MAP) Pulse Ox O2 Delivery O2 Flow Rate FiO2 12/06/24 03:30 107 11 127/83 (98) 94 12/06/24 01:45 98.1 115 14 135/83 (100) 96 98.1 12/06/24 01:45 115 14 96 Nasal Cannula* 6 44 12/06/24 01:44 118 12/06/24 01:30 120 12/06/24 01:20 98.7 123 30 136/86 92 98.7 Laboratory Tests Test 12/06/24 01:40 White Blood Count 11.3 10^3/uL (4.4-10.8) H Medications Medications Dose Ordered Sig/Trena Route Start Time Stop Time Status Last Admin Dose Admin Diagnostic Test (Pha) 1 strip Q90MIN 12/06/24 03:00 12/06/24 03:00 1 STRIP Insulin Human Regular 2 units ONCE ONCE SC 12/06/24 01:30 12/06/24 01:32 DC 12/06/24 02:21 2 UNITS Sodium Chloride 1,000 ml @ 1,000 mls/hr Q1H ONCE IV 12/06/24 02:00 12/06/24 02:59 DC 12/06/24 03:47 1,000 MLS/HR Sodium Chloride 2,000 ml @ 1,000 mls/hr Q2H ONCE IV 12/06/24 01:30 12/06/24 03:29 DC 12/06/24 02:18 1,000 MLS/HR Assessment/Plan Assessment/Plan Assessment Toxic encephalopathy New onset diabetes mellitus Polysubstance abuse Acute kidney injury Transaminitis Plan Admit the patient to telemetry to the hospitalist Maintenance IV fluids Monitor LFTs Acute hepatitis panel pending Continue treatment per orders. Plan discussed with: Patient My Orders Orders - JOSÉ CLARK Procedure Category Date Status Time Basic Metabolic Panel LAB 12/06/24 Transmitted 07:00 Sodium Chloride 0.9% PHA 12/06/24 Logged 04:30 Hemoglobin A1c LAB 12/06/24 Transmitted 04:22 Acute Hepatitis Panel LAB 12/06/24 Transmitted 04:22 Consistent DIET 12/06/24 Transmitted Carb(Ccho)Diabetes Breakfast Glucose Blood PHA 12/06/24 Logged (Accu-Chek Comfort 08:00 Insulin R (Human) PHA 12/06/24 Logged (Insulin R) 08:00 Dextrose 50% Syringe [facility] 12/06/24 Logged 04:30 Admit ADMIT 12/06/24 Transmitted 04:[address] [facility] 12/06/24 Logged (Zofran) 04:30 Complete Blood Count LAB 12/07/24 Verified 04:00 Comprehensive LAB 12/07/24 Verified Metabolic Panel 04:00 Condition: Fair [facility] 12/06/24 In Process 04:22 Bedrest With Bathroom [facility] 12/06/24 In Process Privileg 04:[address] [facility] 12/06/24 Logged Sublingual (Ntrostat 04:[address] [facility] 12/06/24 Logged Injection 04:30 Stat Ekg For Chest [facility] 12/06/24 In Process Pain 04:22 Notify Md Of Changes [facility] 12/06/24 In Process From Base 04:22 Vrt Mechanic For [facility] 12/06/24 In Process 24 Hours 04:22 Emergency Dysrhythmia [facility] 12/06/24 In Process Protocol 04:22 Rhythm Strips Once [facility] 12/06/24 In Process Every Shift 04:22 Oxygen By Nasal RT 12/06/24 Transmitted Cannula 04:22 Date of Service: Dec 06, 2024 Billing Provider: JOSÉ CLARK Common Visit Codes: [id number] INP/OBS CARE (HIGH) JOSÉ CLARK Dec 06, 2024 04:34
[2024-12-06] MEDS: NALOXONE HCL 1MG/ML 2ML SYRINGE IV ONE (05:39)
[2024-12-06] MEDS ORDERED: SODIUM CHLORIDE 0.9% 1,000 ML IV SCH ×2 (06:00→14:15)
[2024-12-06] MEDS: InsuLIN REG 1unit/0.01ml Soln (100units/ml) SC SCH (08:00)
[2024-12-06 09:07] LABS: Sodium 140 mmol/L (136-145)
[2024-12-06 09:08] LABS: Anion Gap 9 (5-15); Carbon Dioxide 21 mmol/L (20-31)
[2024-12-06 09:14] LABS: BUN/Creatinine Ratio 10.1 (10.0-20.0); Blood Urea Nitrogen 15 mg/dL (9-23); Calcium 8.7 mg/dL (8.7-10.4); Chloride 110 mmol/L (98-107); Glucose 89 mg/dL (74-106)
[2024-12-06 09:15] LABS: Potassium 5.9 mmol/L (3.5-5.1)
--- NOTE | 2024-12-06 12:02 | DVHPN2 ---
Assessment/Plan Assessment/Plan progress note 39 M with no sig PMH admitted for ALOC. denies but positive for meth and fentanyl. also have numbness and decreased coordination on right side. physical exam aox4 pressured speech, moving around, imbalanced PERLLA small pupils no JVD MMM clear breath sounds s1 s2 rrr abdomen soft nontender no LE edema heel to bobo and finger to nose impaired on R side labs ekg imaging reviewed assessment and plan acute toxic metabolic encephalopathy alcohol use? meth use fentanyl use hyperkalemia RADHA hyperglycemia transaminitis iv fluid CIWA protocol thiamine folate watch RR repeat K, send CK, BNP, lactate MRI diet reg dvt ppx hold full code Plan discussed with: Patient My Orders Orders - NINI VAZQUEZ MD Procedure Category Date Status Time Complete Blood Count LAB 12/06/24 Logged 11:55 Comprehensive LAB 12/06/24 Logged Metabolic Panel 11:55 Lactic Acid W/ Reflex LAB 12/06/24 Logged Order 11:55 B-Type Natriuretic LAB 12/06/24 Logged Peptide 11:55 Magnesium LAB 12/06/24 Logged 11:55 Phosphorus LAB 12/06/24 Logged 11:55 Creatine Kinase LAB 12/06/24 Logged 11:55 Sodium Chloride 0.9% PHA 12/06/24 Logged 12:00 Thiamine Inj PHA 12/06/24 Logged 12:00 Thiamine Inj PHA 12/07/24 Logged 10:00 Folic Acid PHA 12/07/24 Logged 10:00 Folic Acid PHA 12/06/24 Logged 12:00 Insulin Lispro PHA 12/06/24 Logged (Human) (Humalog) 14:00 Date of Service: Dec 06, 2024 Billing Provider: NINI VAZQUEZ MD Common Visit Codes: [id number] INP/OBS CARE(HIGH) NINI VAZQUEZ MD Dec 06, 2024 12:02
[2024-12-06] MEDS ORDERED: LORazepam 0.5 MG TAB PO PRN (12:15)
--- NOTE | 2024-12-06 13:22 | DVH ---
PROCEDURE: MRI BRAIN HEAD WO CONTRAST INDICATION: r/o post circ stroke EXAM DATE: 12/06/2024 12:36 PM COMPARISON: CT HEAD WITHOUT CONTRAST on DOS: 12/06/24 TECHNIQUE: MRI of the brain without intravenous contrast. FINDINGS: Diffusion weighted images of the brain demonstrate no evidence of acute infarction. There is no evidence of acute intracranial hemorrhage, extra-axial collection, mass effect, midline s hift, herniation or hydrocephalus. The ventricles, sulci and cisterns appear age appropriate. The signal intensities of the brain parenchyma are within normal limits. There are no signal abnormalities on the susceptibility weighted sequences. The major vascular flow voids are present. The visualized paranasal sinuses and mastoid air cells are clear. The surrounding soft tissues and o sseous structures are unremarkable. IMPRESSION: 1. No evidence of acute infarction, intracranial hemorrhage, mass effect or hydrocephalus. HS:Y
[2024-12-06 13:35] LABS: Hematocrit 42.0 % (41.0-53.0); Hemoglobin 14.1 g/dL (13.5-17.5); Mean Corpuscular Hemoglobin 30.1 pg (28.0-32.0); Mean Corpuscular Volume 89.7 fL (80.0-100.0); Nucleated Red Blood Cells % 0.1 %
[2024-12-06 13:50] LABS: Alanine Aminotransferase 311 U/L (7-40); Albumin 4.4 g/dL (3.2-4.8); Alkaline Phosphatase 77 U/L (46-116); Anion Gap 7 (5-15); BUN/Creatinine Ratio 11.9 (10.0-20.0); Blood Urea Nitrogen 16 mg/dL (9-23); Calcium 8.2 mg/dL (8.7-10.4); Carbon Dioxide 24 mmol/L (20-31); Chloride 106 mmol/L (98-107); Glucose 99 mg/dL (74-106); Magnesium 1.9 mg/dL (1.6-2.6); Potassium 4.6 mmol/L (3.5-5.1); Sodium 137 mmol/L (136-145); Total Protein 6.1 g/dL (5.7-8.2)
[2024-12-06 13:51] LABS: Bilirubin, Total 0.5 mg/dL (0.2-1.0)
[2024-12-06 13:53] LABS: Lactic Acid w/Reflex 2.2 mmol/L (0.4-2.0)
[2024-12-06] MEDS ORDERED: INSULIN LISPRO (HUMAN) 100 UNITS/ML ML SC SCH (14:00)
[2024-12-06 14:29] LABS: Creatine Kinase IFCC 1354 U/L (46-171)
[2024-12-06] MEDS: FOLIC ACID 1 MG in D5W 5% 50 ML INJ ONE (15:47)
[2024-12-06] MEDS: THIAMINE 100mg/ml INJ (200mg/2ml VIAL) IV ONE (15:47)
[2024-12-06] MEDS: INSULIN LISPRO (HUMAN) 100 UNITS/ML ML SC SCH ×2 (16:00→20:00)
[2024-12-06] MEDS: SODIUM CHLORIDE 0.9% 1,000 ML IV SCH (18:47)
[2024-12-07] VITALS (9 sets, daily range): BP systolic 111–123; BP diastolic 68–87; PULSE 73–104; RESP 16–19; TEMP 97.8–99.2; O2SAT 91–95
[2024-12-07 07:39] LABS: Hematocrit 40.7 % (41.0-53.0); Hemoglobin 14.2 g/dL (13.5-17.5); Mean Corpuscular Hemoglobin 31.7 pg (28.0-32.0); Mean Corpuscular Volume 90.8 fL (80.0-100.0); Nucleated Red Blood Cells % 0.1 %
[2024-12-07 07:54] LABS: Albumin 4.0 g/dL (3.2-4.8); Alkaline Phosphatase 72 U/L (46-116); Anion Gap 9 (5-15); BUN/Creatinine Ratio 8.6 (10.0-20.0); Calcium 8.8 mg/dL (8.7-10.4); Carbon Dioxide 24 mmol/L (20-31); Total Protein 5.7 g/dL (5.7-8.2)
[2024-12-07 08:02] LABS: Alanine Aminotransferase 214 U/L (7-40); Bilirubin, Total 1.4 mg/dL (0.2-1.0); Blood Urea Nitrogen 8 mg/dL (9-23); Chloride 104 mmol/L (98-107); Glucose 114 mg/dL (74-106); Potassium 4.1 mmol/L (3.5-5.1); Sodium 137 mmol/L (136-145)
[2024-12-07] MEDS: THIAMINE 100mg/ml INJ (200mg/2ml VIAL) IV SCH (10:35)
[2024-12-07] MEDS: FOLIC ACID 1 MG in D5W 5% 50 ML INJ SCH (10:37)
[2024-12-07 10:56] LABS: Hepatitis B Surface Antigen Negative (Negative); Hepatitis C Antibody Negative (Negative)
[2024-12-07] MEDS ORDERED: ONDANSETRON HCL 4 MG/2 ML VIAL IV PRN (17:00)
[2024-12-07] MEDS ORDERED: ACETAMINOPHEN 325 MG TAB PO PRN (17:00)
--- NOTE | 2024-12-07 17:05 | DVHPN2 ---
Subjective Alert No complaints Changes from previous H/P or p: Changes Objective Vitals Vital Signs Date Time Temp Pulse Resp B/P (MAP) Pulse Ox O2 Delivery O2 Flow Rate FiO2 12/07/24 13:18 98.4 92 19 112/68 (83) 91 98.4 12/07/24 08:10 Nasal Cannula* 3 32 Intake/Output Intake and Output 12/07/24 07:00 Intake Total 0 ml Balance 0 ml Intake Oral 0 ml # Voids 2 General Appearance: Alert, Oriented X3, Cooperative Lungs: Clear to auscultation, Normal air movement Cardiovascular: Regular rate, Normal S1, Normal S2, No murmurs Abdomen: Normal bowel sounds, Soft, No tenderness Extremities: No edema Medications Current Medications Medications Dose Ordered Sig/Trena Route Start Time Stop Time Status Last Admin Dose Admin Diagnostic Test (Pha) 1 strip IQ4HR 12/06/24 08:00 12/07/24 16:00 1 STRIP Thiamine HCl 100 mg DAILY IV 12/07/24 10:00 12/07/24 10:35 100 MG Folic Acid 1 mg/ Dextrose 50.2 ml @ 200.8 mls/ hr DAILY INJ 12/07/24 10:00 12/07/24 10:37 200.8 MLS/HR Lorazepam 2 mg Q2HPRN PRN PO 12/06/24 12:15 Dextrose 50 ml UD PRN IV 12/06/24 13:45 Insulin Human Lispro Q4H SC 12/06/24 20:00 Laboratory Results Laboratory Tests 12/07/24 06:37 Chemistry Test 12/07/24 06:37 Albumin 4.0 g/dL (3.2-4.8) Calcium Level 8.8 mg/dL (8.7-10.4) Total Protein 5.7 g/dL (5.7-8.2) LFT Test 12/07/24 06:37 Alanine Aminotransferase (ALT) 214 U/L (7-40) H Alkaline Phosphatase 72 U/L (46-116) Aspartate Amino Transferase (AST) 101 U/L (13-40) H Total Bilirubin 1.4 mg/dL (0.2-1.0) H Urinalysis Test 12/06/24 01:59 Urine Color Light-yellow (Yellow) Urine Clarity Clear (Clear) Urine pH 6.5 (5.0-9.0) Urine Specific [place] 1.009 (1.001-1.035) Urine Protein 1+ (Negative) H Urine Ketones Negative (Negative) Urine Blood 1+ /uL (Negative) H Urine Nitrite Negative (Negative) Urine Bilirubin Negative (Negative) Urine Urobilinogen Normal mg/dL (Negative) Urine Leukocyte Esterase Negative /uL (Negative) Urine RBC 5 /hpf (0 - 3) Urine Microscopic WBC 3 /HPF (0-3) Urine Squamous Epithelial Cells None seen /hpf (<5) Urine Bacteria None seen /hpf (None Seen) Urine Sperm Present /hpf (None Seen) Urine Glucose 4+ mg/dL (Normal) H Assessment/Plan Assessment/Plan Acute toxic metabolic encephalopathy alcohol use meth use fentanyl use hyperkalemia, improved RADHA: Resolved hyperglycemia transaminitis, improving PLAN: IV fluids Folic acid, thiamine, MVI PT eval Ativan po prn Plan discussed with: Patient Date of Service: Dec 07, 2024 Billing Provider: ADDISON PERKINS MD Common Visit Codes: [id number] INP/OBS CARE(HIGH) ADDISON PERKINS MD Dec 07, 2024 17:05
[2024-12-07] MEDS ORDERED: LORazepam 0.5 MG TAB PO PRN (17:15)
[2024-12-08] VITALS (8 sets, daily range): BP systolic 116–139; BP diastolic 74–87; PULSE 62–102; RESP 17–20; TEMP 97.8–98.9; O2SAT 90–100
[2024-12-08 06:40] LABS: Hematocrit 38.3 % (41.0-53.0); Hemoglobin 13.5 g/dL (13.5-17.5); Mean Corpuscular Hemoglobin 31.0 pg (28.0-32.0); Mean Corpuscular Volume 87.9 fL (80.0-100.0); Nucleated Red Blood Cells % 0.0 %
[2024-12-08 06:52] LABS: Albumin 3.8 g/dL (3.2-4.8); Alkaline Phosphatase 66 U/L (46-116); Anion Gap 8 (5-15); BUN/Creatinine Ratio 7.7 (10.0-20.0); Carbon Dioxide 29 mmol/L (20-31); Chloride 104 mmol/L (98-107); Cholesterol 127 mg/dL (< 200); HDL Cholesterol 46 mg/dL (40-59); Magnesium 2.0 mg/dL (1.6-2.6); Potassium 3.6 mmol/L (3.5-5.1); Sodium 141 mmol/L (136-145); Triglycerides 96 mg/dL (< 150)
[2024-12-08 06:55] LABS: Alanine Aminotransferase 134 U/L (7-40); Bilirubin, Total 1.6 mg/dL (0.2-1.0); Blood Urea Nitrogen 6 mg/dL (9-23); Calcium 8.5 mg/dL (8.7-10.4); Glucose 119 mg/dL (74-106); Total Protein 5.5 g/dL (5.7-8.2)
[2024-12-08 07:04] LABS: Lipase 28 U/L (12-53)
[2024-12-08] MEDS: FOLIC ACID 1 MG TAB PO SCH (08:29)
[2024-12-08] MEDS: THIAMINE HCL 100 MG TAB PO SCH (08:29)
[2024-12-08] MEDS: MULTIPLE VITAMIN TAB PO SCH (08:29)
--- NOTE | 2024-12-08 10:23 | DVHPN2 ---
Subjective No new complaints No abdominal pain More alert Changes from previous H/P or p: Changes Objective Vitals Vital Signs Date Time Temp Pulse Resp B/P (MAP) Pulse Ox O2 Delivery O2 Flow Rate FiO2 12/08/24 09:00 98.5 102 20 119/77 (91) 90 98.5 12/07/24 20:00 Nasal Cannula* 3 32 Intake/Output Intake and Output 12/08/24 06:59 Intake Total 2650 ml Balance 2650 ml Intake Oral 1650 ml IV Total 1000 ml # Voids 5 # Bowel Movements 1 General Appearance: Alert, Oriented X3, Cooperative Lungs: Clear to auscultation, Normal air movement Cardiovascular: Regular rate, Normal S1, Normal S2, No murmurs Abdomen: Normal bowel sounds, Soft, No tenderness Extremities: No edema Medications Current Medications Medications Dose Ordered Sig/Trena Route Start Time Stop Time Status Last Admin Dose Admin Dextrose 50 ml UD PRN IV 12/06/24 13:45 Ondansetron HCl 4 mg Q4HPRN PRN IV 12/07/24 17:00 Folic Acid 1 mg DAILY PO 12/08/24 10:00 12/08/24 08:29 1 MG Thiamine HCl 100 mg DAILY PO 12/08/24 10:00 12/08/24 08:29 100 MG Multivitamins 1 tab DAILY PO 12/08/24 10:00 12/08/24 08:29 1 TAB Lorazepam 0.5 mg Q6HP PRN PO 12/07/24 17:15 Laboratory Results Laboratory Tests 12/08/24 06:05 Chemistry Test 12/08/24 06:05 Albumin 3.8 g/dL (3.2-4.8) Calcium Level 8.5 mg/dL (8.7-10.4) L Magnesium Level 2.0 mg/dL (1.6-2.6) Total Protein 5.5 g/dL (5.7-8.2) L Lipid panel Test 12/08/24 06:05 Cholesterol Level 127 mg/dL (< 200) HDL Cholesterol 46 mg/dL (40-59) Lipase 28 U/L (12-53) Triglycerides Level 96 mg/dL (< 150) LFT Test 12/08/24 06:05 Alanine Aminotransferase (ALT) 134 U/L (7-40) H Alkaline Phosphatase 66 U/L (46-116) Aspartate Amino Transferase (AST) 68 U/L (13-40) H Total Bilirubin 1.6 mg/dL (0.2-1.0) H Urinalysis Test 12/06/24 01:59 Urine Color Light-yellow (Yellow) Urine Clarity Clear (Clear) Urine pH 6.5 (5.0-9.0) Urine Specific [place] 1.009 (1.001-1.035) Urine Protein 1+ (Negative) H Urine Ketones Negative (Negative) Urine Blood 1+ /uL (Negative) H Urine Nitrite Negative (Negative) Urine Bilirubin Negative (Negative) Urine Urobilinogen Normal mg/dL (Negative) Urine Leukocyte Esterase Negative /uL (Negative) Urine RBC 5 /hpf (0 - 3) Urine Microscopic WBC 3 /HPF (0-3) Urine Squamous Epithelial Cells None seen /hpf (<5) Urine Bacteria None seen /hpf (None Seen) Urine Sperm Present /hpf (None Seen) Urine Glucose 4+ mg/dL (Normal) H Assessment/Plan Assessment/Plan Acute toxic metabolic encephalopathy alcohol use meth use fentanyl use hyperkalemia, improved RADHA: Resolved hyperglycemia transaminitis, improving PLAN: IV fluids Folic acid, thiamine, MVI PT eval Ativan po prn 12/08/2024: The patient is still having elevated liver function tests with a total bilirubin of 1.6 which is slightly higher but the ALT and AST are coming down Continue the current management with IV fluids and multivitamins and thiamine and folic acid The patient was encouraged to get out of bed and ambulate Ativan p.r.n. Monitor closely and the rest of the management will depend on the hospital course Plan discussed with: Patient My Orders Orders - ADDISON PERKINS MD Procedure Category Date Status Time Ondansetron Hcl PHA 12/07/24 In Process (Zofran) 17:00 Folic Acid Tablet PHA 12/08/24 In Process 10:00 Thiamine Tab PHA 12/08/24 In Process 10:00 Multiple Vitamin PHA 12/08/24 In Process Tablet (Mvi Tab) 10:00 Regular Diet DIET 12/07/24 Transmitted Dinner Lorazepam Tablet PHA 12/07/24 In Process (Ativan Tablet) 17:15 Date of Service: Dec 08, 2024 Billing Provider: ADDISON PERKINS MD Common Visit Codes: [id number] INP/OBS CARE(MOD) ADDISON PERKINS MD Dec 08, 2024 10:23
[2024-12-09] VITALS (8 sets, daily range): BP systolic 114–140; BP diastolic 74–95; PULSE 60–90; RESP 18–20; TEMP 97.6–98.6; O2SAT 92–97
[2024-12-09 05:43] LABS: Albumin 4.2 g/dL (3.2-4.8); Alkaline Phosphatase 72 U/L (46-116); Anion Gap 8 (5-15); Calcium 8.8 mg/dL (8.7-10.4); Carbon Dioxide 29 mmol/L (20-31); Chloride 104 mmol/L (98-107); Glucose 104 mg/dL (74-106); Magnesium 2.1 mg/dL (1.6-2.6); Potassium 3.9 mmol/L (3.5-5.1); Sodium 141 mmol/L (136-145); Total Protein 6.2 g/dL (5.7-8.2)
[2024-12-09 05:45] LABS: Alanine Aminotransferase 115 U/L (7-40); BUN/Creatinine Ratio 5.6 (10.0-20.0); Bilirubin, Total 1.5 mg/dL (0.2-1.0); Blood Urea Nitrogen < 5 mg/dL (9-23)
--- NOTE | 2024-12-09 10:44 | DVHPN2 ---
Subjective No new complaints No abdominal pain More alert Changes from previous H/P or p: Changes Objective Vitals Vital Signs Date Time Temp Pulse Resp B/P (MAP) Pulse Ox O2 Delivery O2 Flow Rate FiO2 12/09/24 08:00 74 12/09/24 05:00 98.6 18 114/82 (93) 92 98.6 12/08/24 20:00 Nasal Cannula* 3 32 Intake/Output Intake and Output 12/09/24 07:00 Intake Total 1750 ml Balance 1750 ml Intake Oral 1750 ml # Voids 5 # Bowel Movements 1 General Appearance: Alert, Oriented X3, Cooperative Lungs: Clear to auscultation, Normal air movement Cardiovascular: Regular rate, Normal S1, Normal S2, No murmurs Abdomen: Normal bowel sounds, Soft, No tenderness Extremities: No edema Medications Current Medications Medications Dose Ordered Sig/Trena Route Start Time Stop Time Status Last Admin Dose Admin Dextrose 50 ml UD PRN IV 12/06/24 13:45 Ondansetron HCl 4 mg Q4HPRN PRN IV 12/07/24 17:00 Folic Acid 1 mg DAILY PO 12/08/24 10:00 12/09/24 08:43 1 MG Thiamine HCl 100 mg DAILY PO 12/08/24 10:00 12/09/24 08:43 100 MG Multivitamins 1 tab DAILY PO 12/08/24 10:00 12/09/24 08:43 1 TAB Lorazepam 0.5 mg Q6HP PRN PO 12/07/24 17:15 Laboratory Results Laboratory Tests 12/08/24 06:05 12/09/24 04:39 Chemistry Test 12/09/24 04:39 Albumin 4.2 g/dL (3.2-4.8) Calcium Level 8.8 mg/dL (8.7-10.4) Magnesium Level 2.1 mg/dL (1.6-2.6) Total Protein 6.2 g/dL (5.7-8.2) LFT Test 12/09/24 04:39 Alanine Aminotransferase (ALT) 115 U/L (7-40) H Alkaline Phosphatase 72 U/L (46-116) Aspartate Amino Transferase (AST) 92 U/L (13-40) H Total Bilirubin 1.5 mg/dL (0.2-1.0) H Urinalysis Test 12/06/24 01:59 Urine Color Light-yellow (Yellow) Urine Clarity Clear (Clear) Urine pH 6.5 (5.0-9.0) Urine Specific [place] 1.009 (1.001-1.035) Urine Protein 1+ (Negative) H Urine Ketones Negative (Negative) Urine Blood 1+ /uL (Negative) H Urine Nitrite Negative (Negative) Urine Bilirubin Negative (Negative) Urine Urobilinogen Normal mg/dL (Negative) Urine Leukocyte Esterase Negative /uL (Negative) Urine RBC 5 /hpf (0 - 3) Urine Microscopic WBC 3 /HPF (0-3) Urine Squamous Epithelial Cells None seen /hpf (<5) Urine Bacteria None seen /hpf (None Seen) Urine Sperm Present /hpf (None Seen) Urine Glucose 4+ mg/dL (Normal) H Assessment/Plan Assessment/Plan Acute toxic metabolic encephalopathy alcohol use meth use fentanyl use hyperkalemia, improved RADHA: Resolved hyperglycemia transaminitis, improving PLAN: IV fluids Folic acid, thiamine, MVI PT eval Ativan po prn 12/08/2024: The patient is still having elevated liver function tests with a total bilirubin of 1.6 which is slightly higher but the ALT and AST are coming down Continue the current management with IV fluids and multivitamins and thiamine and folic acid The patient was encouraged to get out of bed and ambulate Ativan p.r.n. Monitor closely and the rest of the management will depend on the hospital course 07/2024: Continue current management Monitor the liver function tests Discharge planning for tomorrow Plan discussed with: Patient Date of Service: Dec 09, 2024 Billing Provider: ADDISON PERKINS MD Common Visit Codes: [id number] INP/OBS CARE(MOD) ADDISON PERKINS MD Dec 09, 2024 10:44
[2024-12-10 05:00] VITALS: BP 131/88; PULSE 84; RESP 16; TEMP 98.3; O2SAT 95
[2024-12-10 07:44] LABS: Alanine Aminotransferase 91 U/L (7-40); Alkaline Phosphatase 68 U/L (46-116); Anion Gap 10 (5-15); BUN/Creatinine Ratio 10.0 (10.0-20.0); Blood Urea Nitrogen 9 mg/dL (9-23); Calcium 9.1 mg/dL (8.7-10.4); Carbon Dioxide 25 mmol/L (20-31); Chloride 105 mmol/L (98-107); Glucose 102 mg/dL (74-106); Magnesium 1.9 mg/dL (1.6-2.6); Potassium 4.0 mmol/L (3.5-5.1); Sodium 140 mmol/L (136-145); Total Protein 6.0 g/dL (5.7-8.2)
[2024-12-10 07:45] LABS: Albumin 4.2 g/dL (3.2-4.8)
[2024-12-10 07:46] LABS: Bilirubin, Total 0.8 mg/dL (0.2-1.0)
[2024-12-10 08:00] VITALS: PULSE 63; PULSE 80; RESP 20; O2SAT 94
[2024-12-10 09:00] VITALS: BP 132/89; PULSE 68; RESP 18; TEMP 98.3; O2SAT 96
[2024-12-10 13:00] VITALS: BP 131/99; PULSE 79; RESP 16; TEMP 97.7; O2SAT 97
[2024-12-10] MEDS ORDERED: FOLI-119 PO (13:07)
[2024-12-10] MEDS ORDERED: THIA100T10 PO (13:07)
[2024-12-10 14:50] VITALS: BP 147/76; PULSE 95; RESP 18; TEMP 98.8; O2SAT 96
--- NOTE | 2024-12-10 15:20 | DVHDS2 ---
Discharge Summary Date of Admission Dec 06, 2024 at 04:22 Date of Discharge: Dec 10, 2024 Labs/Diagnostic Data: Laboratory Results Test 12/10/24 06:36 12/08/24 06:05 12/07/24 16:24 12/06/24 15:55 Sodium Level 140 mmol/L (136-145) Potassium Level 4.0 mmol/L (3.5-5.1) Chloride Level 105 mmol/L (98-107) Carbon Dioxide Level 25 mmol/L (20-31) Anion Gap 10 (5-15) Blood Urea Nitrogen 9 mg/dL (9-23) Creatinine 0.90 mg/dL (0.700-1.30) Glomerular Filtration Rate Calc 111 mL/min (>90) BUN/Creatinine Ratio 10.0 (10.0-20.0) Serum Glucose 102 mg/dL (74-106) Calcium Level 9.1 mg/dL (8.7-10.4) Magnesium Level 1.9 mg/dL (1.6-2.6) Total Bilirubin 0.8 mg/dL (0.2-1.0) Aspartate Amino Transferase (AST) 69 U/L (13-40) Alanine Aminotransferase (ALT) 91 U/L (7-40) Alkaline Phosphatase 68 U/L (46-116) Total Protein 6.0 g/dL (5.7-8.2) Albumin 4.2 g/dL (3.2-4.8) White Blood Count 7.5 10^3/uL (4.4-10.8) Red Blood Count 4.36 10^6/uL (4.5-5.90) Hemoglobin 13.5 g/dL (13.5-17.5) Hematocrit 38.3 % (41.0-53.0) Mean Corpuscular Volume 87.9 fL (80.0-100.0) Mean Corpuscular Hemoglobin 31.0 pg (28.0-32.0) Mean Corpuscular Hemoglobin Concent 35.3 g/dL (32.0-36.0) Red Cell Distribution Width 13.5 % (11.8-14.3) Platelet Count 180 10^3/uL (140-450) Mean Platelet Volume 8.3 fL (6.9-10.8) Neutrophils (%) (Auto) 78.1 % (37.0-80.0) Lymphocytes (%) (Auto) 14.7 % (10.0-50.0) Monocytes (%) (Auto) 6.6 % (0.0-12.0) Eosinophils (%) (Auto) 0.4 % (0.0-7.0) Basophils (%) (Auto) 0.2 % (0.0-2.0) Neutrophils # (Auto) 5.9 10 ^3/uL (1.6-8.6) Lymphocytes # (Auto) 1.1 10 ^3/uL (0.4-5.4) Monocytes # (Auto) 0.5 10 ^3/uL (0-1.3) Eosinophils # (Auto) 0 10 ^3/uL (0-0.8) Basophils # (Auto) 0 10 ^3/uL (0-0.2) Nucleated Red Blood Cells 0.0 % Triglycerides Level 96 mg/dL (< 150) Cholesterol Level 127 mg/dL (< 200) LDL Cholesterol 69 mg/dL (< 100) HDL Cholesterol 46 mg/dL (40-59) Lipase 28 U/L (12-53) POC Glucose 123 mg/dl (70-106) Lactic Acid Level 3.9 mmol/L (0.4-2.0) Test 12/06/24 13:15 12/06/24 01:59 12/06/24 01:42 12/06/24 01:40 Phosphorus Level 5.2 mg/dL (2.4-5.1) Creatine Kinase 1354 U/L (46-171) B-Type Natriuretic Peptide 228.93 pg/mL (0-100) Urine Color Light-yellow (Yellow) Urine Clarity Clear (Clear) Urine pH 6.5 (5.0-9.0) Urine Specific [place] 1.009 (1.001-1.035) Urine Protein 1+ (Negative) Urine Ketones Negative (Negative) Urine Blood 1+ /uL (Negative) Urine Nitrite Negative (Negative) Urine Bilirubin Negative (Negative) Urine Urobilinogen Normal mg/dL (Negative) Urine Leukocyte Esterase Negative /uL (Negative) Urine RBC 5 /hpf (0 - 3) Urine Microscopic WBC 3 /HPF (0-3) Urine Squamous Epithelial Cells None seen /hpf (<5) Urine Bacteria None seen /hpf (None Seen) Urine Sperm Present /hpf (None Seen) Urine Glucose 4+ mg/dL (Normal) Urine Opiates Screen Neg (NEGATIVE) Urine Fentanyl Screen Pos (NEGATIVE) Urine Barbiturates Screen Neg (NEGATIVE) Urine Phencyclidine Screen Neg (NEGATIVE) Urine Amphetamines Screen Pos (NEGATIVE) Urine Benzodiazepines Screen Neg (NEGATIVE) Urine Cocaine Screen Neg (NEGATIVE) Urine Cannabinoids Screen Neg (NEGATIVE) Blood Gas Specimen Type Venous Blood Gas Sample Site Vbg - n/a Blood Gas Patient Temperature 37.0 Arterial Blood Date Drawn [id number] Pete Test N/a Venous Blood pH 7.108 (7.320-7.430) Venous Blood pCO2 at Patient Temp 59.4 mmHg (38.0-54.0) Venous Blood pO2 at Patient Temp < 36.5 mmHg (23.0-48.0) Venous Blood HCO3 18.4 mmol/L (22.0-29.0) Venous Blood Base Excess -11.8 mmol/L (-2.0-3.0) Blood Gas Modality Room air FiO2 % 21.0 Blood Gas Critical Value Read Back Yes Blood Gas Notified Whom nga España md Blood Gas Notified Time [id number] Blood Gas Notified By ulises Magaña, sharan Hemoglobin A1c 5.7 % A1C (<5.7) Serum Osmolality 319 mOsm/kg (278-298) Beta-Hydroxybutyric Acid 0.204 mmol/L (< 0.4) Salicylates Level < 3.0 mg/dL (-30) Acetaminophen Level < 2.0 UG/ML (10.0-20.0) Plasma/Serum Blood Alcohol 5.3 mg/dL (<10) Hepatitis A IgM Antibody Negative Hepatitis B Surface Antigen Negative (Negative) Hepatitis B Core IgM Antibody Negative (Negative) Hepatitis C Antibody Negative (Negative) Other Laboratory Tests 12/10/24 06:36 12/08/24 06:05 Brief Hx & Hospital Course: 39 M with no sig PMH admitted for ALOC. denies but positive for meth and fentanyl. also have numbness and decreased coordination on right side. CK elevated with RADHA, concern for rhabdo. CIWA protocol started, given iv fluids. now improved. mental status back to baseline. stable to dc home. not in withdrawal. Condition at Discharge: Good Final Diagnosis/Problems List acute toxic metabolic encephalopathy alcohol use? meth use fentanyl use hyperkalemia RADHA hyperglycemia transaminitis Discharge Disposition: Home Discharge Instruct/Medications Diet: Regular Activity: No Restrictions, As Tolerated Scheduled Folic Acid (Folic Acid), 1 MG PO DAILY Thiamine Hcl (Vitamin B-1), 100 MG PO DAILY Discharge Statement: "Patient was advised to return to the ER or call 911 if any headaches, dizziness, shortness of breath, chest pain, abdominal pain, bleeding, fevers, or worsening of medical condition. Patient was counseled about treatment plan, medications, possible side effects, patientverbalized understanding. All questions were answered to the best of my ability. This discharge took greater then 30 minutes in planning, reviewing documentation, counseling the patient, and discussing with other team members." ASSESSMENT ASSESSMENT Assessment acute toxic metabolic encephalopathy alcohol use meth use fentanyl use hyperkalemia RADHA hyperglycemia transaminitis Date of Service: Dec 10, 2024 Billing Provider: NINI VAZQUEZ MD Common Visit Codes: 34774-[id number]/OBS DISCH DAY >30min NINI VAZQUEZ MD Dec 10, 2024 15:20
== END 2024-12-10 15:55 | disposition home or self-care (01) | DRG 52 ==
LOC: EDBD 01:20 → ER 01:20 → OVERFLOW 04:22 → TELE-CENTR 23:55
PROVIDERS: ADMIT Student in an Organized Health Care Education/Training Program; ATTEND Student in an Organized Health Care Education/Training Program
DX: G92.8 Other toxic encephalopathy (principal); N17.0 Acute kidney failure with tubular necrosis; E87.20 Acidosis, unspecified; M62.82 Rhabdomyolysis; E87.5 Hyperkalemia; F15.90 Other stimulant use, unspecified, uncomplicated; R74.01 Elevation of levels of liver transaminase levels; F17.210 Nicotine dependence, cigarettes, uncomplicated; F19.10 Other psychoactive substance abuse, uncomplicated; F10.90 Alcohol use, unspecified, uncomplicated; Z79.899 Other long term (current) drug therapy; Z88.0 Allergy status to penicillin; Z83.3 Family history of diabetes mellitus; Y90.0 Blood alcohol level of less than 20 mg/100 ml; E11.65 Type 2 diabetes mellitus with hyperglycemia; R06.03 Acute respiratory distress
CPT/HCPCS: 36415; 36600; 70450; 70551; 71045; 80048; 80053; 80061; 80074; 80307; 80320; 80329; 81001; 82010; 82550; 82805; 82962; 83036; 83605; 83690; 83735; 83880; 83930; 84100; 85025; 93005; 96374; 97110; 97116; 97163; 97530; 99291; G0378; J1815; J7060